=== PATIENT | female | born 1965 | race African-American/Black ===

== ENCOUNTER 2019-09-24 21:54 | Observation (INO) ==
[2019-09-24] MEDS ORDERED: ASPIRIN 325 MG TABLET PO STA (22:22)
[2019-09-24] MEDS ORDERED: NITROGLYCERIN SL 0.4 MG TABLET SL PRN (22:24)
[2019-09-24 22:46] LABS: Basophils % 0.5 % (0.0-0.8); Eosinophils % 0.3 % (0.00-10.9); Hematocrit 45.5 VOL% (35.7-47.0); Hemoglobin 14.4 GM/DL (12.0-16.0); Immature Granulocytes % 0.2 %; Immature Granulocytes Absolute 0.01 #; Lymphocytes # 1.7 10*3/uL (1.4-4.0); Lymphocytes % 26.3 % (21.3-54.2); Mean Corpuscular HGB Conc 31.6 GM/DL (32-36); Mean Corpuscular Volume 92.5 FL (87-102); Mean Platelet Volume 10.2 FL (9.6-12.0); Monocytes % 6.9 % (1.7-12.7); Neutrophils % 65.8 % (38.7-73.9); Platelet Count 209 T/CUMM (130-400); Red Blood Count 4.92 MC/CUMM (3.8-5.5); Red Cell Distribution Width 13.6 % (9.3-17.3); White Blood Count 6.4 T/CUMM (4-12)
[2019-09-24 22:53] LABS: Apearance,Urine CLEAR (Clear); Bacteria,Urine Occasional /HPF (Few); Bilirubin,Urine Negative (Negative); Blood, Urine Small mg/dL (Negative); Glucose,Urine (UA) Negative (Negative); Ketones,Urine 5 mg/dL (Negative); Mucus,Urine Occasional /LPF (Occasional); Nitrite,Urine Negative (Negative); Protein,Urine Negative; RBC,Urine 1 /HPF (0-4); Squamous Epithelial Cell,Urine Occasional /HPF (0-10); Urine Color Yellow (Yellow); Urine Specific Gravity 1.013 (1.001-1.035); Urine Urobilinogen < 2.0 EU/DL (0.2-1.0); WBC,Urine 3 /HPF (0-6)
[2019-09-24 23:01] LABS: Alanine Aminotransferase 23 U/L (13-56); Albumin 4.3 G/DL (3.4-5.0); Alkaline Phosphatase 49 U/L (45-117); Aspartate Amino Transferase 13 U/L (0-37); Bilirubin,Total < 0.39 MG/DL (0.2-1.0); Blood Urea Nitrogen 16 MG/DL (7-18); Calcium 9.3 MG/DL (8.5-10.1); Estimated Glom Filtration Rate 65 ML/MIN; Glucose 147 MG/DL (74-106); Osmolality,Calculated 271.2 MOS/KG (273-304); Total Protein 8.2 G/DL (6.4-8.3)
[2019-09-24] MEDS ORDERED: MORPHINE 4 MG/1 ML VIAL IV PRN (23:53)
[2019-09-24] MEDS ORDERED: ONDANSETRON 4 MG/2 ML VIAL IV PRN (23:53)
[2019-09-24] MEDS ORDERED: ACETAMINOPHEN 325 MG TABLET PO PRN (23:53)
[2019-09-24] MEDS ORDERED: POTASSIUM CHLORIDE 20 MEQ TABLET PO PRN (23:53)
[2019-09-24] MEDS ORDERED: GLUCAGON 1 MG VIAL IM PRN (23:58)
[2019-09-24] MEDS ORDERED: DEXTROSE 10% 250 ML BAG IV PRN (23:58)
[2019-09-25] MEDS ORDERED: ENOXAPARIN 40 MG/0.4 ML SYRINGE SUBCUT SCH
[2019-09-25] MEDS: NITROGLYCERIN 2% OINT 1 INCH/GM PACK TOP SCH ×2 (00:10→06:36)
[2019-09-25 08:00] LABS: Calcium 9.3 MG/DL (8.5-10.1); Osmolality,Calculated 275.7 MOS/KG (273-304); Risk Ratio 2.03; VLDL CHOLESTEROL 11.4 MG/DL
[2019-09-25] MEDS ORDERED: ASPIRIN EC 325 MG TABLET PO SCH (09:00)
[2019-09-25] MEDS: INSULIN REGULAR 100 UNIT/ML SUBCUT SCH ×2 (10:21→12:52)
[2019-09-25] MEDS ORDERED: carvediloL 3.125 MG TABLET PO SCH (11:00)
[2019-09-25] MEDS ORDERED: carvediloL 6.25 MG TABLET PO SCH (11:00)
[2019-09-25] MEDS ORDERED: KETOROLAC 15 MG/1 ML VIAL IV ONE (11:26)
[2019-09-25 11:51] VITALS: BP 136/82
== END 2019-09-25 14:29 | disposition home or self-care (01) ==
LOC: N.EDINP 21:54 → N.ED 21:54 → N.TELEN 09-25 04:45
PROVIDERS: ADMIT Internal Medicine; ATTEND Internal Medicine